=== PATIENT | male | born 1990 | race African-American/Black ===

== ENCOUNTER 2020-08-15 07:16 | Emergency (ER) | payer OTHER, SELFPAY ==
[2020-08-15 07:20] VITALS: BP 140/72; PULSE 80; RESP 14; TEMP 36.4; O2SAT 98; BMI 25.1
[2020-08-15 07:32] VITALS: PULSE 82; O2SAT 95
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
--- NOTE | 2020-08-15 08:16 | PC.NURSE ---
Pt ambulated around unit well, no dizziness or complications.
[2020-08-15 08:20] LABS: Ethanol (ETOH) 225 mg/dL
[2020-08-15 08:36] VITALS: PULSE 81; O2SAT 98
== END 2020-08-15 08:43 | disposition home or self-care (01) ==
LOC: ED 08:19
PROVIDERS: Emergency Provider Emergency Medicine
DX: F10.129 Alcohol abuse with intoxication, unspecified (principal); Y90.7 Blood alcohol level of 200-239 mg/100 ml
CPT/HCPCS: 36415; 80320; 99283